=== PATIENT | male | born 1945 | race Caucasian/White ===

== ENCOUNTER 2016-05-10 10:52 | Day surgery (SDC) | payer MEDICARE, OTHER ==
[~2016-05-10] VITALS: Ht 172.7 cm; Wt 96.2 kg
[~2016-05-10 10:52] MED LIST: ADV250INH IH; ASCO-294 PO; CHOL200047 PO; ESOM40CA41 PO; FERR325T39 PO; HYDR25TA4 PO; IPRA3AMP IH; IPRA4AER IH; LISI-567 PO; MESA400C PO; METF500T4 PO; MULT-666 PO; PARO30TA4 PO; PRAV20TA2 PO; RANI150C4 PO; Sodium Chloride LOK Flush 10 mL Syringe IV PRN; fentaNYL-PF 50 mCg/mL 2 mL Inj IVPUSH PRN
[2016-05-10] MEDS ORDERED: FLUT12AE8 IH (11:12)
[2016-05-10 11:17] VITALS: BP 145/84; PULSE 67; RESP 16; O2SAT 93
[2016-05-10] MEDS: 0.9% Sodium Chloride 1,000 ML IV SCH ×2 (11:29→11:39)
[2016-05-10 11:48] VITALS: BP 142/96; PULSE 73; RESP 12; O2SAT 96
[2016-05-10 12:00] VITALS: BP 144/84; PULSE 78; RESP 14; O2SAT 96
[2016-05-10 12:13] VITALS: BP 134/87; PULSE 75; RESP 14; O2SAT 93
--- NOTE | 2016-05-10 12:21 | ENDO ---
[address] [address] ENDOSCOPY PROCEDURE PATIENT: ANNAMARIA LUBIN : 1945 MR#: [id number] ADMIT: 05/10/2016 JOB ID: [id number] DATE: 05/10/2016 PROCEDURE: Esophagogastroduodenoscopy. INDICATION: Gastroesophageal reflux. ASA CLASSIFICATION: II MALLAMPATI SCORE: 2 MEDICATIONS: Versed 5 mg, fentanyl 125 mcg. INSTRUMENT USED: GIF-H180J. PROCEDURE DETAILS: After informed consent was obtained, the patient was brought into the GI suite where he was placed on oxygen via nasal cannula and monitored with continuous pulse oximeter, telemetry, and blood pressure monitoring. A time-out was performed. Then, he was placed in a left lateral decubitus position and medications were administered for sedation. A bite block was placed. The standard EGD scope was inserted through the bite block and advanced under direct visualization to the second portion of duodenum without difficulty. FINDINGS: 1. Normal-appearing duodenal bulb, first and second portion. 2. Normal-appearing pylorus, antrum, and gastric body. 3. Retroflexed views in the gastric body revealed a normal-appearing cardia and fundus. A hiatal hernia was appreciated. 4. The diaphragmatic hiatus was at approximately 41 cm, and the GE junction was at 38 cm. Arising from the GE junction, there was a short segment of salmon-colored mucosa suggestive of Peter's esophagus. The GE junction was at approximately 38 cm, and the tongue of salmon-colored mucosa extended to 37 cm. Multiple biopsies were obtained in the distal esophagus. The remainder of the esophagus was otherwise unremarkable. IMPRESSION: 1. Irregular gastroesophageal junction with Dallas classification C0M1. 2. Small hiatal hernia. RECOMMENDATIONS: 1. Reflux precautions. 2. Continue PPI daily. 3. Follow up in GI clinic. COMPLICATIONS: None. ESTIMATED BLOOD LOSS: Less than 5 mL.
--- NOTE | 2016-05-13 13:55 | PATH ---
SURGICAL PATHOLOGY Attending Physician:Princess Pruett CASE STATUS: Signed Out PATIENT NAME: ANNAMARIA LUBIN PID: [id number] : 1945 DATE COLLECTED:05/10/2016 20:57 SPECIMEN: Esophagus, Biopsy CLINICAL HISTORY: 1). DISTAL ESOPHAGUS BIOPSY FINAL DIAGNOSIS: 1.DISTAL ESOPHAGUS BIOPSY: SQUAMOUS MUCOSA AND GASTRIC CARDIA-TYPE MUCOSA POSITIVE FOR SPECIALIZED METAPLASIA OF ROJAS' S-TYPE ESOPHAGUS. NEGATIVE FOR DYSPLASIA AND MALIGNANCY. EOSINOPHILS ARE NOT INCREASED. ICD10 CODE K22.7 GROSS DESCRIPTION: Received in formalin, labeled with the patient' s name and "distal esophagus biopsy", are five fragments of valencia, soft tissue ranging in size from less than 0.1 cm by less than 0.1 cm by less than 0.1 cm to 0.1 x 0.1 x 0.1 cm. All fragments are totally submitted in cassette A. ([id number]) MICRO DESCRIPTION: See diagnosis. ICD-9 CODES: CPT CODES: 1: 59341 Electronically Signed Out Mingo Demarco MD [facility] [address], [place] [address] Technical component performed at [facility], [facility] [address], [place], [address]
[2016-07-24] MEDS ORDERED: ALBU0.63 INHALATION (12:36)
[2016-07-24] MEDS ORDERED: FLUT12AE4 IH (12:36)
== END 2016-05-10 23:59 | disposition home or self-care (01) ==
LOC: END 10:52
PROVIDERS: ATTEND Internal Medicine Gastroenterology
DX: K22.70 Barrett's esophagus without dysplasia (principal); K44.9 Diaphragmatic hernia without obstruction or gangrene; K21.9 Gastro-esophageal reflux disease without esophagitis; K51.30 Ulcerative (chronic) rectosigmoiditis without complications; J44.9 Chronic obstructive pulmonary disease, unspecified; F41.9 Anxiety disorder, unspecified; R35.1 Nocturia; R33.9 Retention of urine, unspecified; R39.12 Poor urinary stream; F17.210 Nicotine dependence, cigarettes, uncomplicated; Z79.51 Long term (current) use of inhaled steroids; Z79.84 Long term (current) use of oral hypoglycemic drugs
CPT/HCPCS: 43239; G0500; J2250; J3010; J7030

== ENCOUNTER 2016-06-11 10:40 | Day surgery (SDC) | payer MEDICARE, OTHER ==
[~2016-06-11] VITALS: Ht 172.7 cm; Wt 95.0 kg
[~2016-06-11 10:40] MED LIST changes: -ADV250INH IH; +FLUT12AE8 IH; -IPRA4AER IH; -Sodium Chloride LOK Flush 10 mL Syringe IV PRN; -fentaNYL-PF 50 mCg/mL 2 mL Inj IVPUSH PRN
[2016-06-11 10:49] VITALS: BP 142/76; PULSE 78; RESP 16; O2SAT 95
[2016-06-11] MEDS ORDERED: 0.9% Sodium Chloride 1,000 ML ONE (10:52)
[2016-07-24] MEDS ORDERED: ALBU0.63 INHALATION (12:36)
[2016-07-24] MEDS ORDERED: FLUT12AE4 IH (12:36)
== END 2016-06-11 23:59 | disposition home or self-care (01) ==
LOC: END 10:40
PROVIDERS: ATTEND Internal Medicine Gastroenterology
DX: K51.30 Ulcerative (chronic) rectosigmoiditis without complications (principal)

== ENCOUNTER 2016-07-25 11:41 | Day surgery (SDC) | payer MEDICARE, OTHER ==
[~2016-07-25] VITALS: Ht 172.7 cm; Wt 90.0 kg
[~2016-07-25 11:41] MED LIST changes: +ALBU0.63 INHALATION; +FLUT12AE4 IH; +Lactated Ringer's 1,000 ML IV ONE; +Lactated Ringer's 1,000 ML IV SCH; -MESA400C PO; +Ondansetron 2 mg/mL 2 mL Inj IVPUSH PRN
[2016-07-25] MEDS ORDERED: Propofol 10,000 mCg/mL 20 mL Inj ONE (11:42)
[2016-07-25 12:40] VITALS: BP 131/75; PULSE 69; RESP 16; O2SAT 94
[2016-07-25] MEDS ORDERED: SYMINH INHALATION (12:40)
--- NOTE | 2016-07-25 13:07 | PCM.HPANE ---
Patient Data Date of Service: Jul 25, 2016 Surgeon Admitting Provider: Attending Provider:Vangie Rg MD Primary Care Physician:Manisha Aguilar PA-C Other Provider:Alexis Pimentel Anesthesia Reason for Visit Ulcerative Rectosigmoiditis Ht/WT & BMI Height (Feet): 5 Height (Inches): 8 Weight (Kilograms): 90 Body Mass Index 30.00 Allergies Coded Allergies: No Known Allergies (Verified Allergy, Mild, 07/25/16) Past Anesthesia History Anesthesia History: Denies:: Abnormal Airway, Anesthesia Reactions, Difficult Intubation, Fam Anesthesia Reaction, Fam Malignant Hypertherm, Malignant Hyperthermia Diabetes History Hx Diabetes?: Yes Type of Diabetes: Type II Glycemic Control: Oral Medication Current Bedside Blood Glucose: 99 MRSA MRSA: No Medications Hypertension Medication: Yes Home Meds Incl Beta Willy: No Reported Medications Budesonide/Formoterol 160-4.5 mcg Inh (Symbicort 160-4.5 mcg Inh)120 Puff Inhaler1 Puff INHALATION BID #1 INHALER Ref 0 07/25/16 Albuterol Neb Soln 0.63 Mg/3 Ml Vial.neb0.63 Mg INHALATION Q4H PRN For Shortness of Breath Ref 0 07/24/16 Fluticasone Propionate (Flovent HFA 110 mcg)12 Gm Aer.w.adap2 Puffs IH BID #12 GM Ref 0 05/10/16 Cholecalciferol (Vitamin D3) (Vitamin D3)2,000 Unit Capsule2,000 Unit PO DAILY 05/09/16 Ascorbate Calcium (Vitamin C)500 Mg Kmvppp515 Mg PO DAILY 05/09/16 Ranitidine 150 Mg Nzlrbtd583 Mg PO DAILY Ref 0 05/09/16 Multivitamin (Once Daily)1 Each Tablet1 Each PO DAILY 05/09/16 Metformin 500 Mg Etxlhl692 Mg PO BID Ref 0 05/09/16 Ferrous Sulfate (Iron)325 Mg Eipgju692 Mg PO 05/09/16 Ipratropium/Albuterol Sulfate (Iprat-Albut 0.5-3(2.5) mg/3 mL Inhalant Soln)3 Ml Ampul.neb3 Ml IH Q6 Ref 0 06/15/15 Pravastatin 20 Mg Hqpvyk36 Mg PO DAILY Ref 0 06/13/15 Paroxetine 30 Mg Vmvcim51 Mg PO HS 30 Days Ref 0 06/13/15 Esomeprazole Magnesium (Nexium)40 Mg Capsule.dr40 Mg PO DAILY Ref 0 06/13/15 Lisinopril 20 Mg Knxvzh81 Mg PO DAILY 30 Days Ref 0 06/13/15 Hydrochlorothiazide 25 Mg Fcqihg11 Mg PO DAILY 30 Days Ref 0 06/13/15 Discontinued Reported Medications Fluticasone/Salmeterol (Advair Hfa 115-21 Mcg Inhaler)12 Gm Hfa.aer.ad1 Puff IH BID #1 INHALER Ref 0 07/24/16 History History of ENT Problems?: No HEENT History: Denies:: Abnormal Airway Cataracts Difficult Intubation Dysphagia Glaucoma Hearing Problem Sinus Problem TMJ Denture Type: None Teeth Condition: Within Normal Limits Hx of Heart Problems?: No Cardiovascular History: Positive for:: Hypertension Denies:: AICD Atrial Fibrillation Chest Pain Pacemaker Valvular Heart Disease Hx of Respiratory Problem?: Yes Respiratory History: Positive for:: COPD (REQUIRES 2L O2 AT NIGHT, AND DURING THE DAY NEEDED.) Oxygen Administration (AT NIGHT) Pneumonia Denies:: Asthma Cough Hemoptysis Tuberculosis Hx Neurologic Problems?: No Neurological History: Denies:: CVA Hx of GI Problems?: Yes Hx of Problems?: No Hx Musculoskeletal Problems?: No Musculoskeletal History: Denies:: Joint Replacement Hx of Psycho/Social Problems?: No Psycho Social History: Positive for:: Anxiety Denies:: Hx Depression Hx Surgeries?: Yes (CANCER ON EAR,CYST ON BACK) Hx Any Other Health Problems?: No Hx Diabetes: YesBedside Blood Glucose: 99 Hx Alcohol Use: No Smoking Status: Former Smoker Stop/Bang Treated for Sleep Apnea?: Yes Do You Have a CPAP Machine?: No S-Snoring: Do You Snore Loudly: Yes T-Tired: feel tired, fatigued: No O-Obsered: Observed not breath: No P-Blood Pressure: treated: Yes B- Body Mass Index > 35 kg/m2: No A- Age over 50: Yes N- Neck Large Circumference: Yes G- Gender Male: Yes ELIGIO Total Score: 5 ELIGIO Risk Assessment: High Risk, =/>3 Yes ELIGIO Category 2: Yes Risk Assessment Category Category 1A: Patient has history of documented sleep apnea, and HAS NOT received any narcotic, sedative or anesthesia administration during this stay. Category 1B: Patient has history of documented sleep apnea, and HAS received any narcotic , sedative or anesthesia administration during this stay Category 2: Patient has SUSPECTED Obstructive Sleep Apnea, and HAS received any narcotic , sedative or anesthesia administration during this stay. Category 3: Patient has SUSPECTED Obstructive Sleep Apnea and HAS NOT received narcotic, sedative or anesthesia administration during this stay. Category 4: Outpatient in Procedural Areas with known sleep apnea or who screen positive for High Risk via the STOP/BANG questionnaire. Exam Exam Vital Signs Vital Signs Date Time Temp Pulse Resp B/P Pulse Ox O2 Delivery O2 Flow Rate FiO2 07/25/16 12:40 37.0 69 16 131/75 94 Room Air General Appearance: Alert, Oriented X3, Cooperative, No Acute Distress HEENT/AIRWAY: MP 2 Lungs: Clear to Auscultation, Normal Air Movement Heart: Exam Unremarkable, Regular Rate/Rhythm, Normal S1, Normal S2, No Murmurs /Rubs/Gallops Meds/Labs/Diagnostics Admission Meds Current Medications Lactated Ringer's (Lr) 1,000 ml @ 10 mls/hr Q24H ONCE IV Last administered on 07/25/16t 12:53; Start 07/25/16 at 06:00; Stop 07/26/16 at 05:59 Bedside Blood Glucose: 99 Plan Impression Patient chart reviewed, patient interviewed and anesthestic plan with risks, benefits, and alternatives discussed, and informed consent obtained. NPO per Anesth. Guidelines: Yes ASA Physical Status: ASA3 Severe Disease Anesthetic Plan: GA, TIVA Bene/Risks/Altern/Consents: Yes HP Complete Prior to Induction: Yes Jose Miguel Franklin MD Jul 25, 2016 13:07
[2016-07-25 13:46] VITALS: BP 139/74; PULSE 77; RESP 15; O2SAT 95
[2016-07-25 13:55] VITALS: BP 139/77; PULSE 69; RESP 15; O2SAT 94
[2016-07-25 14:05] VITALS: BP 161/66; PULSE 60; RESP 15; O2SAT 95
--- NOTE | 2016-07-25 14:09 | PCM.ANEP1 ---
Post Anesthesia Phase 1 PACU Phase 1 Assessment Date of Service: Jul 25, 2016 Vital Signs Vital Signs Date Time Temp Pulse Resp B/P Pulse Ox O2 Delivery O2 Flow Rate FiO2 07/25/16 13:46 77 15 139/74 95 Room Air 07/25/16 12:40 37.0 69 16 131/75 94 Room Air Anesthetic Administered: GA, TIVA Level of Alertness: Awake, talking PUENTES's with Equal Strength: Yes Pain: No Nausea or Vomiting: No Cardiovascular Function and Hy: Yes Oxygen Delivery: Room Air Lungs: Clear to Auscultation, Normal Air Movement Dermatome Level: Full Sensation Complications: No Follow up Care: No Jose Miguel Franklin MD Jul 25, 2016 14:09
--- NOTE | 2016-07-25 22:21 | ENDO ---
[address] [address] ENDOSCOPY PROCEDURE PATIENT: ANNAMARIA LUBIN : 1945 MR#: [id number] ADMIT: 07/25/2016 JOB ID: [id number] PROCEDURE: Colonoscopy. INDICATIONS: Patient with a history of ulcerative rectosigmoiditis. The patient's ASA classification, Mallampati score, and medications are as per the anesthesia note. INSTRUMENT USED: PCF H 180 AL. PREPARATION QUALITY: Fair. PROCEDURE DETAILS: After informed consent was obtained, the patient was brought to the GI suite, where he was placed on oxygen via nasal cannula and monitored with continuous pulse oximeter, telemetry, and blood pressure monitoring. A time-out was performed. Then, he was placed in the left lateral decubitus position and medications were administered for sedation. Digital rectal exam was performed and was unremarkable. The colonoscope was then inserted into the rectum and advanced under direct visualization to the cecum, which was identified by the presence of the ileocecal valve and appendiceal orifice. Once the cecum was reached, the terminal ileum was intubated. From the terminal ileum, the colonoscope was then withdrawn back into the rectum as the mucosa and lumen were examined. In the rectum, retroflexion was performed. Following retroflexion, remaining air in the rectum was suctioned, and the procedure was completed. FINDINGS: 1. There was some minimal erythema noted in the terminal ileum. Multiple random biopsies were obtained. 2. The mucosa from the cecum to the rectum appeared unremarkable. Multiple random biopsies were obtained throughout the entire colon. 3. In the transverse colon, there was an approximately 6 mm sessile polyp that was removed with a hot snare. IMPRESSION: 1. Mild erythema in the terminal ileum consistent with mild ileitis. 2. Transverse colon polyp. RECOMMENDATIONS: 1. Await biopsy results. 2. Avoid NSAIDs and anticoagulants for 72 hours. 3. Follow up in GI clinic. COMPLICATIONS: None. ESTIMATED BLOOD LOSS: Less than 5 mL.
--- NOTE | 2016-07-29 11:38 | PATH ---
SURGICAL PATHOLOGY Attending Physician:Princess Pruett CASE STATUS: Signed Out PATIENT NAME: ANNAMARIA LUBIN PID: [id number] : 1945 DATE COLLECTED:07/25/2016 00:00 SPECIMEN: 1: Colon, Biopsy 2: Colon, Biopsy 3: Colon, Biopsy 4: Rectum, Biopsy 5: Ileum, Biopsy 6: Colon, Biopsy CLINICAL HISTORY: 1). RIGHT COLON 2). TRANSVERSE COLON 3). LEFT COLON 4). RECTUM 5). TERMINAL ILEUM 6). TRANSVERSE COLON POLYP FINAL DIAGNOSIS: 1.RIGHT COLON, BIOPSY: NORMAL COLONIC MUCOSA. No significant inflammation identified. No evidence of dysplasia or malignancy. 2.TRANSVERSE COLON, BIOPSY: NORMAL COLONIC MUCOSA. No significant inflammation identified. No evidence of dysplasia or malignancy. 3.LEFT COLON, BIOPSY: NORMAL COLONIC MUCOSA. No significant inflammation identified. No evidence of dysplasia or malignancy. 4.RECTUM, BIOPSY: NORMAL COLONIC MUCOSA. No significant inflammation identified. No evidence of dysplasia or malignancy. 5.TERMINAL ILEUM, BIOPSY: NORMAL SMALL BOWEL MUCOSA. No significant inflammation identified. No evidence of malignancy or dysplasia. 6.TRANSVERSE COLON POLYP: TUBULAR ADENOMA. ICD10 CODE D12.6 K51.9 GROSS DESCRIPTION: Received are six formalin-filled containers, each labeled with the patient' s name. 1. Received in formalin, labeled with the patient' s name and "right colon", are three fragments of valencia, soft tissue ranging in size from 0.1 x 0.1 x 0.1 cm to 0.2 x 0.1 x 0.1 cm. All fragments are totally submitted in cassette 1A. 2. Received in formalin, labeled with the patient' s name and "transverse colon", are four fragments of valencia, soft tissue ranging in size from 0.1 x 0.1 x 0.1 cm to 0.2 x 0.1 x 0.1 cm. All fragments are totally submitted in cassette 2A. 3. Received in formalin, labeled with the patient' s name and "left colon", are four fragments of valencia, soft tissue ranging in size from 0.1 x 0.1 x 0.1 cm to 0.2 x 0.2 x 0.1 cm. All fragments are totally submitted in cassette 3A. 4. Received in formalin, labeled with the patient' s name and "rectum", are two fragments of valencia, soft tissue ranging in size from 0.1 x 0.1 x 0.1 cm to 0.2 x 0.1 x 0.1 cm. All fragments are totally submitted in cassette 4A. 5. Received in formalin, labeled with the patient' s name and "terminal ileum", are two fragments of valencia, soft tissue ranging in size from 0.2 x 0.1 x 0.1 cm to 0.2 x 0.2 x 0.1 cm. All fragments are totally submitted in cassette 5A. 6. Received in formalin, labeled with the patient' s name and "transverse colon polyp", is one fragment of valencia, soft tissue measuring 0.4 x 0.3 x 0.2 cm. The fragment is bisected and totally submitted in cassette 6A. ([id number]) MICRO DESCRIPTION: See diagnosis. ICD-9 CODES: CPT CODES: 1: 29621 2: 36941 3: 08672 4: 87094 5: 32851 6: 65634 Electronically Signed Out Ignacio Cox MD [facility] [address], [place] [address] Technical component performed at [facility], [facility] [address], [place], [address]
== END 2016-07-25 23:59 | disposition home or self-care (01) ==
LOC: END 11:41
PROVIDERS: ATTEND Internal Medicine Gastroenterology
DX: D12.3 Benign neoplasm of transverse colon (principal); K52.9 Noninfective gastroenteritis and colitis, unspecified; K51.30 Ulcerative (chronic) rectosigmoiditis without complications; J44.9 Chronic obstructive pulmonary disease, unspecified; K21.9 Gastro-esophageal reflux disease without esophagitis; E11.9 Type 2 diabetes mellitus without complications; I10 Essential (primary) hypertension; F41.9 Anxiety disorder, unspecified; F17.210 Nicotine dependence, cigarettes, uncomplicated; Z99.81 Dependence on supplemental oxygen; Z79.51 Long term (current) use of inhaled steroids; Z79.84 Long term (current) use of oral hypoglycemic drugs
CPT/HCPCS: 45380; 45385; J7120